=== PATIENT | female | born 1965 | race Two or more races ===

== ENCOUNTER 2018-03-12 21:34 | Emergency (ER) | payer BC, OTHER ==
[~2018-03-12] VITALS: Ht 167.6 cm; Wt 100.2 kg
[2018-03-12] MEDS ORDERED: SODIUM CHLORIDE 0.9% 1,000ML IVBOLUS ONE (22:00)
[2018-03-12 22:20] LABS: BASOPHILS # (AUTO) 0.03 x10^3/uL (0-0.1); BASOPHILS % (AUTO) 0 % (0-1); EOSINOPHILS # (AUTO) 0.11 x10^3/uL (0-0.4); EOSINOPHILS % (AUTO) 2 % (1-7); LYMPHOCYTES # (AUTO) 1.16 x10^3/uL (1-3.4); LYMPHOCYTES % (AUTO) 16 % (22-44); MD NO; MEAN CORPUSCULAR HGB CONC 33.2 g/dL (32.4-35.8); MEAN CORPUSCULAR VOLUME 84.6 fL (80-100); MONOCYTES % (AUTO) 6 % (2-9); NEUTROPHILS # (AUTO) 5.62 x10^3/uL (1.8-6.8); NEUTROPHILS % (AUTO) 77 % (42-75); PLATELET COUNT 240 x10^3/uL (130-400); RED BLOOD COUNT 4.26 x10^6/uL (3.82-5.3); RED CELL DISTRIBUTION WIDTH 14.3 % (9.6-15.2)
[2018-03-12] MEDS ORDERED: METO200T47 PO (22:22)
[2018-03-12] MEDS ORDERED: LISI2.5T PO (22:22)
[2018-03-12] MEDS ORDERED: INSULIN (22:22)
[2018-03-12] MEDS ORDERED: GLIP5TAB10 PO (22:22)
[2018-03-12] MEDS ORDERED: LABETALOL 5MG/ML, 20ML IVPush STA ×2 (22:29→23:38)
[2018-03-12 22:31] LABS: ALBUMIN 3.7 g/dL (3.4-5.0); ANION GAP 12 mmol/L (5-15); CALCIUM 9.6 mg/dL (8.5-10.1); CHLORIDE 105 mmol/L (98-107); CREATININE 2.82 mg/dL (0.55-1.02)
[2018-03-12] MEDS ORDERED: LABETALOL 5MG/ML, 20ML ONE (22:32)
[2018-03-12 22:35] LABS: TROPONIN I 0.027 ng/mL (0.000-0.045)
[2018-03-12 22:40] LABS: INTERNATIONAL NORMALIZED RATIO 1.03 (0.93-1.1); PROTHROMBIN TIME 10.6 Seconds (9.6-11.5)
[2018-03-13 00:14] VITALS: BP 152/85
== END 2018-03-13 00:26 | disposition home or self-care (01) ==
LOC: ED 22:51
DX: R04.0 Epistaxis (principal); Z59.0 Homelessness; E11.22 Type 2 diabetes mellitus with diabetic chronic kidney disease; I12.9 Hypertensive chronic kidney disease with stage 1 through stage 4 chronic kidney disease, or unspecified chronic kidney disease; I25.10 Atherosclerotic heart disease of native coronary artery without angina pectoris; Z95.1 Presence of aortocoronary bypass graft; N18.3 Chronic kidney disease, stage 3 (moderate)
CPT/HCPCS: 36415; 80048; 82040; 84484; 85025; 85610; 93005; 96361; 96374; 96376; 99285; J7030